=== PATIENT | female | born 1965 | race Caucasian/White ===

== ENCOUNTER → 2021-01-05 | Outpatient (CLI) | payer OTHER ==
--- NOTE | 2021-01-05 09:39 | RAD ---
PA and lateral chest x-ray without comparison for COPD. FINDINGS: Lungs are hyperinflated. No pneumothorax, pleural effusion, pulmonary edema, or focal pneum onic infiltrate. Cardiomediastinum is grossly unremarkable. No significant osseous abnormalities. IMPRESSION: 1. COPD with no acute cardiopulmonary abnormality. Electronically signed by: Martinez Willson MD (01/05/2021 9:36 AM) [id number]
== END ==
LOC: PF 08:26
PROVIDERS: ATTEND Family Medicine
DX: Z02.71 Encounter for disability determination (principal); J44.9 Chronic obstructive pulmonary disease, unspecified
CPT/HCPCS: 71046; 94010